=== PATIENT | female | born 1955 | race Caucasian/White ===

== ENCOUNTER 2016-08-22 20:27 | Emergency (ER) | payer OTHER ==
[~2016-08-22] VITALS: Ht 160 cm; Wt 59.0 kg
[~2016-08-22 20:27] MED LIST: NITR-58 PO
[2016-08-22 20:32] VITALS: Ht 160 cm; Wt 59.0 kg
[2016-08-22] MEDS ORDERED: ONDANSETRON 4 MG INJ IV STA (22:40)
[2016-08-22] MEDS ORDERED: SOD CHLORIDE 0.9% 500 ML IV STA (22:40)
[2016-08-22] MEDS ORDERED: morphine 2 MG INJ IV STA (22:40)
[2016-08-22] MEDS ORDERED: IBUP-1542 PO (22:51)
[2016-08-22 23:30] LABS: ADD SCAN DIFF NO
[2016-08-22 23:37] LABS: BASOPHILS % 0.5 % (0.0-2.0); EOSINOPHILS # 0.6 10^3/ul (0.0-0.5); EOSINOPHILS % 9.8 % (0.0-7.0); HEMATOCRIT 40.4 % (37.0-47.0); HEMOGLOBIN 13.5 g/dl (12.0-16.0); LYMPHOCYTES # 3.5 10^3/ul (0.8-2.9); LYMPHOCYTES % 53.4 % (15.0-51.0); MEAN CORPUSCULAR HEMOGLOBIN 31.1 pg (29.0-33.0); MEAN CORPUSCULAR HGB CONC 33.4 g/dl (32.0-37.0); MEAN CORPUSCULAR VOLUME 93.1 fl (82.0-101.0); MEAN PLATELET VOLUME 12.7 fl (7.4-10.4); MONOCYTE # 0.7 10^3/ul (0.3-0.9); NEUTROPHIL # 1.6 10^3/ul (1.6-7.5); NEUTROPHILS % 24.7 % (39.0-77.0); PLATELET COUNT 124 10^3/UL (140-415); RED BLOOD COUNT 4.34 10^6/ul (4.20-5.40); RED CELL DISTRIBUTION WIDTH 12.4 % (11.5-14.5); WHITE BLOOD COUNT 6.6 10^3/ul (4.8-10.8)
[2016-08-22 23:43] LABS: INR 0.98
[2016-08-22 23:44] LABS: PARTIAL THROMBOPLASTIN TIME 29.7 Sec (25.0-35.0)
[2016-08-22 23:53] LABS: ALANINE AMINOTRANSFERASE 28 IU/L (13-69); ALBUMIN 4.3 g/dl (3.3-4.9); ALBUMIN/GLOBULIN RATIO 1.16; ALKALINE PHOSPHATASE 107 IU/L (42-121); ANION GAP 11 (8-16); ASPARTATE AMINO TRANSFERASE 28 IU/L (15-46); BILIRUBIN,INDIRECT 0.1 mg/dl (0-1.1); BILIRUBIN,TOTAL 0.1 mg/dl (0.2-1.3); BLOOD UREA NITROGEN 11 mg/dl (7-20); CALCIUM 9.8 mg/dl (8.4-10.2); CARBON DIOXIDE 26 mmol/L (21-31); CHLORIDE 105 mmol/L (97-110); CREATININE 0.58 mg/dl (0.44-1.00); GLUCOSE 91 mg/dl (70-220); POTASSIUM 4.4 mmol/L (3.5-5.1); SODIUM 138 mmol/L (135-144)
[2016-08-23 00:08] LABS: TROPONIN-I < 0.012 ng/ml (0.00-0.12)
[2016-08-23 00:21] LABS: ADD UMIC YES; URINE BILIRUBIN (Dip) NEGATIVE (NEGATIVE); URINE BLOOD (Dip) NEGATIVE (NEGATIVE); URINE COLOR LT. YELLOW (YELLOW); URINE GLUCOSE (Dip) NEGATIVE (NEGATIVE); URINE KETONES (Dip) NEGATIVE (NEGATIVE); URINE LEUKOCYTE ESTERASE (Dip) 1+ (NEGATIVE); URINE NITRITE (Dip) NEGATIVE (NEGATIVE); URINE TOTAL PROTEIN (Dip) NEGATIVE (NEGATIVE); URINE UROBILINOGEN (Dip) 0.2 E.U./dL (0.1-1.0)
--- NOTE | 2016-08-23 00:26 | ERA ---
ER Documentation Chief Complaint Date/Time DATE: 08/23/16 TIME: 00:23 Chief Complaint lower abd pain& painful urination & chest pain x 3 days HPI This is a 61-year-old female no significant past medical history presents with her family members. She describes approximately 2-3 weeks of dysuria urgency and frequency. She has tried Keflex and Macrobid without success. She continues to have dysuria urgency and frequency. She also today noted that the suprapubic abdominal pain that she has been having over this timeframe radiated up into her chest transiently less than 1 minute. She denied any chest pressure , no pleuritic pain. The patient has had no nausea vomiting or diarrhea. She continues to have moderate suprapubic abdominal discomfort. No fever during this timeframe. ROS All systems reviewed and are negative except as per history of present illness. Medications Home Meds Active Scripts Docusate Sodium* (Colace*) 100 Mg Capsule, 100 MG PO TID, #30 CAP Prov:REHANA ANN MD 08/23/16 Naproxen* (Naprosyn*) 500 Mg Tablet, 500 MG PO BID Y for PAIN AND/OR INFLAMMATION for 14 Days, TAB Prov:REHANA ANN MD 08/23/16 Reported Medications Ibuprofen* (Ibuprofen*) 600 Mg Tablet, 600 MG PO Q6H Y for PAIN, TAB 08/22/16 Discontinued Scripts Nitrofurantoin Monohyd Macrocr* (Macrobid*) 100 Mg Capsr, 100 MG PO BID for 7 Days, CAP Prov:KAUSHIK PHILLIPS MD 01/11/16 Allergies Allergies: Coded Allergies: No Known Allergy (Unverified , 08/22/16) PMhx/Soc Medical and Surgical Hx: pt denies Medical Hx, pt denies Surgical Hx History of Surgery: No Anesthesia Reaction: No Hx Neurological Disorder: No Hx Respiratory Disorders: No Hx Cardiac Disorders: No Hx Psychiatric Problems: No Hx Miscellaneous Medical Probl: No Hx Alcohol Use: No Hx Substance Use: No Hx Tobacco Use: No Smoking Status: Never smoker FmHx Family History: No diabetes Physical Exam Vitals Vital Signs Date Time Temp Pulse Resp B/P Pulse Ox O2 Delivery O2 Flow Rate FiO2 08/22/16 20:32 97.8 69 20 199/87 99 Physical Exam General: Well developed, well nourished, no acute distress Head: Normocephalic, atraumatic. Eyes: Pupils equally reactive, EOM intact ENT: Moist mucous membranes Neck: Supple, no lymphadenopathy Respiratory: Lungs clear bilaterally, no distress Cardiovascular: RRR, no murmurs, rubs, or gallops Abdominal: Soft, suprapubic tenderness without rebound or guarding, negative Leyva sign, no tenderness to McBurney's point : Deferred MSK: No edema, no unilateral swelling, 5/5 strength Neurologic: Alert and oriented, moving all extremities, normal speech, no focal weakness, no cerebellar signs Skin: No rash Psych: Normal mood Result Diagram: 08/22/16 2305 08/22/16 2305 Results 24 hrs Laboratory Tests Test 08/22/16 23:05 08/22/16 23:50 White Blood Count 6.610^3/ul Red Blood Count 4.3410^6/ul Hemoglobin 13.5g/dl Hematocrit 40.4% Mean Corpuscular Volume 93.1fl Mean Corpuscular Hemoglobin 31.1pg Mean Corpuscular Hemoglobin Concent 33.4g/dl Red Cell Distribution Width 12.4% Platelet Count 43981^3/UL Mean Platelet Volume 12.7fl Neutrophils % 24.7% Lymphocytes % 53.4% Monocytes % 11.0% Eosinophils % 9.8% Basophils % 0.5% Nucleated Red Blood Cells % 0.0/100WBC Neutrophils # 1.610^3/ul Lymphocytes # 3.510^3/ul Monocytes # 0.710^3/ul Eosinophils # 0.610^3/ul Basophils # 0.010^3/ul Nucleated Red Blood Cells # 0.010^3/ul Prothrombin Time 13.0Sec Prothrombin Time Ratio 1.0 INR International Normalized Ratio 0.98 Activated Partial Thromboplast Time 29.7Sec Sodium Level 138mmol/L Potassium Level 4.4mmol/L Chloride Level 105mmol/L Carbon Dioxide Level 26mmol/L Anion Gap 11 Blood Urea Nitrogen 11mg/dl Creatinine 0.58mg/dl Glucose Level 91mg/dl Calcium Level 9.8mg/dl Total Bilirubin 0.1mg/dl Direct Bilirubin 0.00mg/dl Indirect Bilirubin 0.1mg/dl Aspartate Amino Transf (AST/SGOT) 28IU/L Alanine Aminotransferase (ALT/SGPT) 28IU/L Alkaline Phosphatase 107IU/L Troponin I < 0.012ng/ml Total Protein 8.0g/dl Albumin 4.3g/dl Globulin 3.70g/dl Albumin/Globulin Ratio 1.16 Lipase 148U/L Urine Color LT. YELLOW Urine Clarity CLEAR Urine pH 6.0 Urine Specific [place] <=1.005 Urine Ketones NEGATIVE Urine Nitrite NEGATIVE Urine Bilirubin NEGATIVE Urine Urobilinogen 0.2 E.U./dL Urine Leukocyte Esterase 1+ Urine Microscopic RBC NONE SEEN/HPF Urine Microscopic WBC 5-10/HPF Urine Squamous Epithelial Cells OCCASIONAL Urine Hemoglobin NEGATIVE Urine Glucose NEGATIVE% Urine Total Protein NEGATIVE Current Medications Medications (Trade) Dose Ordered Sig/Cristina Route PRN Reason Start Time Stop Time Status Last Admin Dose Admin Sodium Chloride (NS) 500 ml @ 500 mls/hr Q1H STAT IV 08/22/16 22:40 08/22/16 23:39 DC 08/22/16 23:32 Morphine Sulfate (morphine) 2 mg ONCE STAT IV 08/22/16 22:40 08/22/16 22:41 DC Ondansetron HCl (Zofran Inj) 4 mg ONCE STAT IV 08/22/16 22:40 08/22/16 22:41 DC Procedures/MDM EKG, MONITORS, & DIAGNOSTIC IMAGING: EKG: I reviewed and interpreted a 12-lead EKG. Rhythm: Normal sinus rhythm Ectopy: None Intervals: No abnormalities ST segments: No elevations or depressions T waves: No contiguous inversions Chest x-ray: I reviewed and interpreted a 1 view of the chest Mediastinum: No enlargement Cardiac silhouette: No cardiomegaly Airspace: Clear lung summers bilaterally without evidence of pneumothorax Bones: No evidence of fracture CT abdomen and pelvis: IMPRESSION: 1. Nonspecific ileus pattern with some fecal debris and nondilated loops of distal small bowel with moderate fecal material throughout the colon concerning for constipation. 2. No findings to suggest appendicitis. 3. Cholelithiasis without CT evidence of cholecystitis. 4. Atherosclerotic calcification of the aorta and iliac systems. 5. Degenerative disk disease at L5-S1. LAB INTERPRETATION: No leukocytosis, urinalysis with only 5-10 WBCs, negative nitrites MEDICAL DECISION MAKING: The patient presents with several weeks of dysuria urgency and frequency. She has mild suprapubic abdominal tenderness. The patient has had appropriate outpatient antibiotics with no relief. However, no fever, no flank pain to suggest pyelonephritis. I am more concerned that this may represent interstitial cystitis versus possible malignancy in this patient's age group. The patient will benefit from laboratory testing and CT imaging of the abdomen and pelvis. Her chest pain is nonspecific and appears to be referred pain. I believe an EKG and troponin will be appropriate but no evidence of PE or dissection. No exertional symptoms and no chest pressure. Very typical description of this pain that was very transient less than 1 minute. The family also describes this pain was worse and reproducible when standing. Consider musculoskeletal etiology. ER COURSE: The patient's laboratory analysis and diagnostic imaging is unrevealing. CT shows ileus but the patient is having bowel movements. Consider constipation. Urinalysis is also nonspecific with only 5-10 WBCs. Given duration of symptoms this is more consistent with likely interstitial cystitis rather than urinary tract infection. given the patient's afebrile state as well as normal white blood cell count I do not believe that initiation of another antibiotic would be reasonable. Urine culture has been sent and she can be called if it becomes positive. I believe that a trial of anti-inflammatory medications as well as outpatient follow-up with urology would be most appropriate for this patient. We discussed return precautions including fevers or chills or worsening symptoms. The patient and family member describe understanding. I kept the patient and/or family informed of laboratory and diagnostic imaging results throughout the emergency room course. DISPOSITION PLAN: We discussed follow up with the patient's primary care doctor within 24 to 48 hours as needed. We also discussed return to the emergency room for worsening symptoms or worsening condition. Outpatient referral: Urology Patient informed that she may require cystoscopy to rule out malignancy. Discharge Medications: Naprosyn, Colace Departure Diagnosis: Primary Impression: Interstitial cystitis Additional Impressions: Constipation Qualified Code: K59.00 - Constipation, unspecified constipation type Generalized abdominal pain Condition: Stable REHANA ANN MD Aug 23, 2016 00:26
--- NOTE | 2016-08-23 00:28 | RADRPT ---
PROCEDURE: CT abdomen and pelvis without contrast. CLINICAL INDICATION: Mid and right lower quadrant abdominal pain TECHNIQUE: CT scan of the abdomen and pelvis without contrast was performed. Sagittal and coronal reformatted images were obtained from the axial source images. CTDI = 9.92 mGy; DLP = 474.97 mGy-cm COMPARISON: None available. FINDINGS: Visualized lower thorax: The lung bases are clear. There is no evidence for pleural effusion. Liver, gallbladder, pancreas and spleen: The liver is normal and size, contour and attenuation. Th ere is no evidence for a liver mass or ductal dilatation. Cholelithiasis is present the largest margaret cified gallstone approximate 2.5 cm. There is no evidence of pericholecystic inflammation. No comm on bile duct abnormality is demonstrated. The pancreas is unremarkable. The spleen is normal in si ze. Adrenal glands and genitourinary system: The adrenal glands are normal bilaterally. The kidneys are normal and size, contour and attenuation with no evidence for masses, calculi or hydronephrosis, in cidental congenital left extrarenal pelvis is noted. The ureters are unremarkable. No urinary blad wilmer abnormality is demonstrated. The uterus and adnexa are unremarkable for the patient's age. Gastrointestinal system: The stomach is normal in caliber with no abnormality of significance. Werner e fecal material within the small bowel is concerning for an ileus without evidence of bowel obstruc tion, no wall thickening is present. The appendix is not visualized but there are no inflammatory ch anges of the fat in the right lower quadrant to suggest appendicitis. Moderate amount of fecal debr is is seen throughout the colon. There is no evidence for colitis or diverticulitis. Peritoneum, retroperitoneum, lymph nodes and vessels: The abdominal aorta is normal in caliber. The re is mild aortic and iliac system atherosclerotic calcification. The inferior vena cava is unremar kable. There is no evidence for adenopathy or mass. There is no ascites. Osseous structures and musculoskeletal findings: There is no fracture, lytic or blastic lesion. Deg enerative disk disease at L5-S1 is noted No muscular abnormality or soft tissue pathology is presen t. RPTAT:HJJR IMPRESSION: 1. Nonspecific ileus pattern with some fecal debris and nondilated loops of distal small bowel with moderate fecal material throughout the colon concerning for constipation. 2. No findings to suggest appendicitis. 3. Cholelithiasis without CT evidence of cholecystitis. 4. Atherosclerotic calcification of the aorta and iliac systems. 5. Degenerative disk disease at L5-S1. Pawel Sherman Physician Date Time Electronically viewed and signed by Pawel Sherman, Physician on 08/23/2016 00:27 JR/
[2016-08-23 00:46] LABS: SQUAMOUS EPITHELIAL CELL,UR OCCASIONAL; URINE RBCS NONE SEEN /HPF (0)
[2016-08-23] MEDS ORDERED: DOCU-144 PO (01:02)
[2016-08-23] MEDS ORDERED: NAPR-260 PO (01:02)
[2016-08-23 01:44] VITALS: BP 154/88; PULSE 77; RESP 20; TEMP 97.5
== END 2016-08-23 01:45 | disposition home or self-care (01) ==
LOC: E/R 20:27
DX: N30.10 Interstitial cystitis (chronic) without hematuria (principal); K59.00 Constipation, unspecified; R10.84 Generalized abdominal pain
CPT/HCPCS: 36415; 74176; 80053; 81001; 81003; 83690; 84484; 85025; 85610; 85730; 87086; 93005; J7040; Z7502

== ENCOUNTER 2017-02-22 13:49 | Day surgery (SDC) | payer OTHER ==
[~2017-02-22] VITALS: Ht 152.4 cm; Wt 58.1 kg
[~2017-02-22 13:49] MED LIST changes: +DOCU-144 PO; +IBUP-1542 PO; +NAPR-260 PO; -NITR-58 PO
[2017-02-22] MEDS ORDERED: PROPOFOL 60 ML ONE (16:35)
[2017-02-22] MEDS ORDERED: LIDOCAINE 2% (SDV) 5 ML INJ ONE (16:35)
[2017-02-22 16:41] VITALS: BP 187/85; PULSE 81; RESP 15
--- NOTE | 2017-02-22 17:02 | OPPN ---
Date/Time of Note Date/Time of Note DATE: 02/22/17 TIME: 16:59 Proc Note GI Procedure Date 02/22/17 Indication: other (Colorectal cancer screening) Pre-procedure Diagnosis Colorectal cancer screening Post-procedure Diagnosis Impression: 4 mm polyp in the hepatic flexure. Ablated Mild diverticulosis left side of the colon. Moderate-sized internal hemorrhoids. Otherwise normal colonoscopy to cecum. Plan: Follow up as scheduled] High fiber diet Annual hemoccult stool testing [Review pathology] [Surveillance colonoscopy in 5 years] . Procedure Performed: Colonoscopy (With polyp ablation) Surgeon MALIK DING MD See signature line Arbitrator none Anesthesia Type: MAC Anesthesiologist: CORINE CARRANZA Tourniquet Time none EBL none Transfusion required none Biopsy 1: None Additional Polyp: Hepatic flexure polyp Grafts/Implants none Tubes/Drains none Complication(s) none Disposition: home Procedure Description After informed consent, with the patient/relatives understanding the procedure, its indications and potential risks and complications, including but not limited to: Allergic reaction, bleeding, perforation, infection, and after all pertinent questions were answered to the patient's satisfaction, the patient/ relatives signed the witnessed informed consent. Following this, premedication was administered slowly IV push under careful cardiovascular and respiratory monitoring with pulse [employer], automatic blood pressure, and satellite project site monitor. Once the sedative effect was achieved, the patient was placed in the left lateral decubitus position, digital rectal examination was performed. The colonoscope was then introduced and advanced under visual control throughout all segments of the colon including: the rectum, sigmoid, descending colon, splenic flexure, transverse colon, hepatic flexure, ascending colon and finally reaching the cecum which was clearly identified by transillumination, finger indentation and the ileocecal valve. Careful examination of the mucosa of the lower gastrointestinal tract both on insertion as well as withdrawal of the instrument disclosed the following findings: PREPARATION QUALITY: [Adequate], RECTAL EXAM: The anorectal area was visualized examined and digital rectal examination performed with the following findings: No evidence of perirectal disease, no masses. COLONIC MUCOSA: The mucosa of all segments of the colon was carefully examined and showed the following findings: There is a 4 mm sessile polyp in the hepatic flexure. Ablated with biopsy forceps. There is mild diverticulosis left side of the colon. Moderate-sized internal hemorrhoids are present. Otherwise the examined mucosa appears within normal limits. There is no evidence of inflammatory changes, other neoplasms, vascular malformation, or any other abnormality. The instrument was then withdrawn, the patient tolerated the procedure well and was transferred out of the Endoscopy Suite awake and in good condition to continue recovery under observation. Copies To: CC: MALIK DING MD, MORDO MD Feb 22, 2017 17:02
[2017-02-22 17:30] VITALS: BP 155/83; RESP 18
== END 2017-02-22 21:00 | disposition home or self-care (01) ==
LOC: GIL 13:49
PROVIDERS: ATTEND Internal Medicine Gastroenterology
DX: Z12.11 Encounter for screening for malignant neoplasm of colon (principal); D12.3 Benign neoplasm of transverse colon; K57.30 Diverticulosis of large intestine without perforation or abscess without bleeding; K64.8 Other hemorrhoids; E03.9 Hypothyroidism, unspecified; I10 Essential (primary) hypertension
CPT/HCPCS: 45380; 88305; Z7610